=== PATIENT | male | born 1950 | race Caucasian/White ===

== ENCOUNTER 2017-12-20 13:16 | Inpatient (IN) | payer OTHER ==
[2017-12-20] MEDS ORDERED: PROPOFOL/EMULSION 1,000 MG/100 ML BOTTLE IV ONE (13:30)
[2017-12-20] MEDS ORDERED: TDAP ADULT 0.5 ML INJ (BOOSTRIX) IM ONE (13:34)
--- NOTE | 2017-12-20 13:34 | EDPHY ---
H & P Time Seen by Provider: 12/20/17 13:16 HPI/ROS: CHIEF COMPLAINT: Full trauma, head injury HISTORY OF PRESENT ILLNESS: Patient arrives by EMS has full trauma activation. Apparently he was found [place] the [facility] bleeding from the head. Pre-hospital glucose was 29 and he IV glucose prior to arrival. On arrival the patient is nonverbal but is moving around on the gurney and is in a cervical collar. Further history and review of systems is unable as the patient is obtunded on arrival. Past medical history: Left arm fistula and central chest sternotomy is noted. Past medical history reviewed from history and physical dated 08/02/2017 includes dialysis, type 2 diabetes, coronary disease with bypass, prosthetic aortic valve, hepatitis-C. His medications at this time did not include anticoagulants. Social history: Unknown, obtunded on arrival. General Appearance: Patient localizes pain, does not make any verbal sounds or words, does not open eyes spontaneously or to stimuli. Eyes: Manually opening his eyelids, pupils 3 mm bilaterally. ENT, Mouth: Normal mucous membranes. Respiratory: Poor respiratory effort, no crepitus, breath sounds present bilaterally. Cardiovascular: Regular rate and rhythm. Midline sternotomy scar and left arm fistula. Gastrointestinal: Abdomen is soft and non tender. Neurological: Patient localizes pain, nonverbal, does not open eyes spontaneously. Does move all 4 extremities. Skin: 3 cm Laceration to the right parietal scalp. Musculoskeletal: No extremity acute deformity seen, as venous stasis changes in both extremities, has 4 toes on each foot. Psychiatric: Unable, nonverbal Emergency Department course/MDM: Trauma surgeon present on arrival. IV access obtained with i-STAT including potassium 4.3. ED glucose is 140. His pre-hospital glucose was 29 and he was given D50 by the paramedics. Patient was intubated for being obtunded after head trauma on inability to protect airway. Please see separate procedure note for details. CT scan head neck chest abdomen and pelvis ordered. Labs to include troponin and electrolytes. Electrocardiogram. Tetanus updated. ICU admission to Trauma with medicine consult. 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 Chest/abdomen/pelvis mild fluid overload, pleural effusions, no acute traumatic injury seen. 1406: discussed with Dr. Lopes will consult. 1411: Repeat i-STAT shows stable electrolytes with glucose greater than 90. Additional 100 mcg IV fentanyl as well as propofol given for sedation. Scalp laceration cleaned and sutured see Louie ARCE note for details. 1427: ZOHREH hugger applied for hypothermia. (Juju Reyna) Constitutional: Initial Vital Signs Temperature (C) 33.2 C L 12/20/17 13:16 Heart Rate 61 12/20/17 13:16 Respiratory Rate 12 12/20/17 13:16 Blood Pressure 140/80 H 12/20/17 13:16 O2 Sat (%) 100 12/20/17 13:16 O2 Delivery Mode Non-Rebreather Mask O2 (L/minute) 15 Allergies/Adverse Reactions: furosemide Allergy (Verified 12/20/17 14:21) heparin Allergy (Verified 12/20/17 14:21) Sulfa (Sulfonamide Antibiotics) Allergy (Verified 12/20/17 14:21) sulfamethoxazole [From Septra] Allergy (Verified 12/20/17 14:21) torsemide Allergy (Verified 12/20/17 14:21) trimethoprim [From Septra] Allergy (Verified 12/20/17 14:21) Home Medications: Medication Instructions Recorded Unobtainable 12/20/17 Medical Decision Making - Diagnostics Imaging: Discussed imaging studies w/ primary school principal Radiologist - Diagnostics EKG Interpretation: 12-lead EKG interpreted by me; official reading is in trace master. My interpretation is sinus bradycardia with intraventricular conduction delay, rate 49. (Juju Reyna) Imaging Results: Imaging Impressions Lumbar Spine CT 12/20/17 00:00 Impression: 1. Sequela of prior sternotomy, CABG, and aortic valvuloplasty. 2. Cardiomegaly with pulmonary vascular congestion, peribronchial thickening, and intralobular septal thickening with a tiny left pleural effusion and some fluid in the superior portions of each major fissure suggest mild fluid overload. 3. Bibasilar subsegmental atelectasis is infiltrates and/or some alveolar edema. CONTRAST-ENHANCED CT SCAN OF THE ABDOMEN AND PELVIS: Liver: Normal given the arterial and portal venous phases, with imaging acquired before the hepatic veins have yet opacified. Bile Ducts: Normal. Gallbladder: There is gallbladder hydrops. There is no wall thickening or pericholecystic fluid. Pancreas: Normal. Spleen: This is mildly enlarged, measuring 14.2 x 10.8 x 5.7 cm. Adrenal Glands: Normal. Kidneys/Ureters/Urinary Bladder: There is mild bilateral renal cortical atrophy. There is no hydronephrosis or perinephric fluid. The ureters are nondilated. The urinary bladder is moderately distended. GI Tract/Mesentery: The stomach, small bowel, and large bowel are within normal limits. There is no mesenteric edema. Retroperitoneum: There are some borderline enlarged left periaortic retroperitoneal lymph nodes, measuring up to 11 x 15 mm in diameter (series 6, image 41). Follow-up CT reevaluation in 6 months is suggested. There is also a 11 mm right retrocrural lymph node. Peritoneum: There is no ascites, free air, or localized fluid collection.] Vessels: The abdominal aorta is normal in size, and tapers normally. Extensive atherosclerotic calcific plaque is seen in association with the splenic artery, abdominal aorta, and iliac vascular tree. There is no aneurysm. The IVC is normal in caliber. The splenic vein, superior mesenteric vein, and the main portal vein are patent. Reproductive Organs: The prostate gland and seminal vesicles are unremarkable. Abdominal Wall: There is some subcutaneous air likely secondary to injections. A tiny periumbilical hernia is present. Osseous Structures: No acute abnormality. Impression: 1. There is no acute intra-abdominal visceral injury. 2. Mild splenomegaly and mild enlargement of right retrocrural and left periaortic lymph nodes, of uncertain significance. Correlation with a CBC is suggested, and follow-up CT reevaluation in [address] REFORMATTED IMAGES OF THE THORACIC SPINE: The vertebral body heights and posterior alignments are maintained. There is some degenerative change of the midthoracic spine with ventral traction spurs and vacuum disk phenomena. There is no facet malalignment. There is no acute fracture, focal disk herniation, canal stenosis, neural foraminal stenosis, or epidural hematoma identified. Impression: No acute thoracic spine osseous abnormality. CT REFORMATTED IMAGING OF THE LUMBAR SPINE: The vertebral body heights and alignments are preserved. There is severe degenerative disk space narrowing at L5-S1 where there are ventral traction osteophytes present. There is no facet malalignment. The transverse and spinous processes are intact. There is no prevertebral or epidural hematoma identified. There are some mild degenerative changes of the SI joints. Impression: No acute lumbar spine osseous abnormality. Findings were discussed with JUJU REYNA at 14:06, on 12/20/2017. Thoracic Spine CT 12/20/17 00:00 Impression: 1. Sequela of prior sternotomy, CABG, and aortic valvuloplasty. 2. Cardiomegaly with pulmonary vascular congestion, peribronchial thickening, and intralobular septal thickening with a tiny left pleural effusion and some fluid in the superior portions of each major fissure suggest mild fluid overload. 3. Bibasilar subsegmental atelectasis is infiltrates and/or some alveolar edema. CONTRAST-ENHANCED CT SCAN OF THE ABDOMEN AND PELVIS: Liver: Normal given the arterial and portal venous phases, with imaging acquired before the hepatic veins have yet opacified. Bile Ducts: Normal. Gallbladder: There is gallbladder hydrops. There is no wall thickening or pericholecystic fluid. Pancreas: Normal. Spleen: This is mildly enlarged, measuring 14.2 x 10.8 x 5.7 cm. Adrenal Glands: Normal. Kidneys/Ureters/Urinary Bladder: There is mild bilateral renal cortical atrophy. There is no hydronephrosis or perinephric fluid. The ureters are nondilated. The urinary bladder is moderately distended. GI Tract/Mesentery: The stomach, small bowel, and large bowel are within normal limits. There is no mesenteric edema. Retroperitoneum: There are some borderline enlarged left periaortic retroperitoneal lymph nodes, measuring up to 11 x 15 mm in diameter (series 6, image 41). Follow-up CT reevaluation in 6 months is suggested. There is also a 11 mm right retrocrural lymph node. Peritoneum: There is no ascites, free air, or localized fluid collection.] Vessels: The abdominal aorta is normal in size, and tapers normally. Extensive atherosclerotic calcific plaque is seen in association with the splenic artery, abdominal aorta, and iliac vascular tree. There is no aneurysm. The IVC is normal in caliber. The splenic vein, superior mesenteric vein, and the main portal vein are patent. Reproductive Organs: The prostate gland and seminal vesicles are unremarkable. Abdominal Wall: There is some subcutaneous air likely secondary to injections. A tiny periumbilical hernia is present. Osseous Structures: No acute abnormality. Impression: 1. There is no acute intra-abdominal visceral injury. 2. Mild splenomegaly and mild enlargement of right retrocrural and left periaortic lymph nodes, of uncertain significance. Correlation with a CBC is suggested, and follow-up CT reevaluation in [address] REFORMATTED IMAGES OF THE THORACIC SPINE: The vertebral body heights and posterior alignments are maintained. There is some degenerative change of the midthoracic spine with ventral traction spurs and vacuum disk phenomena. There is no facet malalignment. There is no acute fracture, focal disk herniation, canal stenosis, neural foraminal stenosis, or epidural hematoma identified. Impression: No acute thoracic spine osseous abnormality. CT REFORMATTED IMAGING OF THE LUMBAR SPINE: The vertebral body heights and alignments are preserved. There is severe degenerative disk space narrowing at L5-S1 where there are ventral traction osteophytes present. There is no facet malalignment. The transverse and spinous processes are intact. There is no prevertebral or epidural hematoma identified. There are some mild degenerative changes of the SI joints. Impression: No acute lumbar spine osseous abnormality. Findings were discussed with JUJU REYNA at 14:06, on 12/20/2017. Abdomen CT 12/20/17 13:26 Impression: 1. Sequela of prior sternotomy, CABG, and aortic valvuloplasty. 2. Cardiomegaly with pulmonary vascular congestion, peribronchial thickening, and intralobular septal thickening with a tiny left pleural effusion and some fluid in the superior portions of each major fissure suggest mild fluid overload. 3. Bibasilar subsegmental atelectasis is infiltrates and/or some alveolar edema. CONTRAST-ENHANCED CT SCAN OF THE ABDOMEN AND PELVIS: Liver: Normal given the arterial and portal venous phases, with imaging acquired before the hepatic veins have yet opacified. Bile Ducts: Normal. Gallbladder: There is gallbladder hydrops. There is no wall thickening or pericholecystic fluid. Pancreas: Normal. Spleen: This is mildly enlarged, measuring 14.2 x 10.8 x 5.7 cm. Adrenal Glands: Normal. Kidneys/Ureters/Urinary Bladder: There is mild bilateral renal cortical atrophy. There is no hydronephrosis or perinephric fluid. The ureters are nondilated. The urinary bladder is moderately distended. GI Tract/Mesentery: The stomach, small bowel, and large bowel are within normal limits. There is no mesenteric edema. Retroperitoneum: There are some borderline enlarged left periaortic retroperitoneal lymph nodes, measuring up to 11 x 15 mm in diameter (series 6, image 41). Follow-up CT reevaluation in 6 months is suggested. There is also a 11 mm right retrocrural lymph node. Peritoneum: There is no ascites, free air, or localized fluid collection.] Vessels: The abdominal aorta is normal in size, and tapers normally. Extensive atherosclerotic calcific plaque is seen in association with the splenic artery, abdominal aorta, and iliac vascular tree. There is no aneurysm. The IVC is normal in caliber. The splenic vein, superior mesenteric vein, and the main portal vein are patent. Reproductive Organs: The prostate gland and seminal vesicles are unremarkable. Abdominal Wall: There is some subcutaneous air likely secondary to injections. A tiny periumbilical hernia is present. Osseous Structures: No acute abnormality. Impression: 1. There is no acute intra-abdominal visceral injury. 2. Mild splenomegaly and mild enlargement of right retrocrural and left periaortic lymph nodes, of uncertain significance. Correlation with a CBC is suggested, and follow-up CT reevaluation in [address] REFORMATTED IMAGES OF THE THORACIC SPINE: The vertebral body heights and posterior alignments are maintained. There is some degenerative change of the midthoracic spine with ventral traction spurs and vacuum disk phenomena. There is no facet malalignment. There is no acute fracture, focal disk herniation, canal stenosis, neural foraminal stenosis, or epidural hematoma identified. Impression: No acute thoracic spine osseous abnormality. CT REFORMATTED IMAGING OF THE LUMBAR SPINE: The vertebral body heights and alignments are preserved. There is severe degenerative disk space narrowing at L5-S1 where there are ventral traction osteophytes present. There is no facet malalignment. The transverse and spinous processes are intact. There is no prevertebral or epidural hematoma identified. There are some mild degenerative changes of the SI joints. Impression: No acute lumbar spine osseous abnormality. Findings were discussed with JUJU REYNA at 14:06, on 12/20/2017. Cervical Spine CT 12/20/17 13:26 Impression: 1. There is no acute cervical osseous abnormality. 2. Multilevel degenerative changes, most pronounced at the C4-C5 and C5-C6 levels. 3. Tiny central subligamentous disk herniation at C3-C4 resulting in mild central canal stenosis. 4. Minimally displaced left zygomatic arch fracture. If there is further clinical concern regarding the patient's symptoms, correlative MR imaging could be considered, if otherwise not contraindicated. Findings were discussed with JUJU REYNA at 14:06, on 12/20/2017. Head CT 12/20/17 13:26 Impression: 1. There is a superior right frontal scalp hematoma and laceration. 2. There is no acute intracranial abnormality identified on this unenhanced CT evaluation. 3. 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 4. Minimally displaced left zygomatic arch fracture. If there is further clinical concern regarding the patient's symptoms, MR imaging is suggested, if not otherwise contraindicated. Findings were discussed with JUJU REYNA MD at 14:06, on 12/20/2017. Chest CT 12/20/17 13:28 Impression: 1. Sequela of prior sternotomy, CABG, and aortic valvuloplasty. 2. Cardiomegaly with pulmonary vascular congestion, peribronchial thickening, and intralobular septal thickening with a tiny left pleural effusion and some fluid in the superior portions of each major fissure suggest mild fluid overload. 3. Bibasilar subsegmental atelectasis is infiltrates and/or some alveolar edema. CONTRAST-ENHANCED CT SCAN OF THE ABDOMEN AND PELVIS: Liver: Normal given the arterial and portal venous phases, with imaging acquired before the hepatic veins have yet opacified. Bile Ducts: Normal. Gallbladder: There is gallbladder hydrops. There is no wall thickening or pericholecystic fluid. Pancreas: Normal. Spleen: This is mildly enlarged, measuring 14.2 x 10.8 x 5.7 cm. Adrenal Glands: Normal. Kidneys/Ureters/Urinary Bladder: There is mild bilateral renal cortical atrophy. There is no hydronephrosis or perinephric fluid. The ureters are nondilated. The urinary bladder is moderately distended. GI Tract/Mesentery: The stomach, small bowel, and large bowel are within normal limits. There is no mesenteric edema. Retroperitoneum: There are some borderline enlarged left periaortic retroperitoneal lymph nodes, measuring up to 11 x 15 mm in diameter (series 6, image 41). Follow-up CT reevaluation in 6 months is suggested. There is also a 11 mm right retrocrural lymph node. Peritoneum: There is no ascites, free air, or localized fluid collection.] Vessels: The abdominal aorta is normal in size, and tapers normally. Extensive atherosclerotic calcific plaque is seen in association with the splenic artery, abdominal aorta, and iliac vascular tree. There is no aneurysm. The IVC is normal in caliber. The splenic vein, superior mesenteric vein, and the main portal vein are patent. Reproductive Organs: The prostate gland and seminal vesicles are unremarkable. Abdominal Wall: There is some subcutaneous air likely secondary to injections. A tiny periumbilical hernia is present. Osseous Structures: No acute abnormality. Impression: 1. There is no acute intra-abdominal visceral injury. 2. Mild splenomegaly and mild enlargement of right retrocrural and left periaortic lymph nodes, of uncertain significance. Correlation with a CBC is suggested, and follow-up CT reevaluation in [address] REFORMATTED IMAGES OF THE THORACIC SPINE: The vertebral body heights and posterior alignments are maintained. There is some degenerative change of the midthoracic spine with ventral traction spurs and vacuum disk phenomena. There is no facet malalignment. There is no acute fracture, focal disk herniation, canal stenosis, neural foraminal stenosis, or epidural hematoma identified. Impression: No acute thoracic spine osseous abnormality. CT REFORMATTED IMAGING OF THE LUMBAR SPINE: The vertebral body heights and alignments are preserved. There is severe degenerative disk space narrowing at L5-S1 where there are ventral traction osteophytes present. There is no facet malalignment. The transverse and spinous processes are intact. There is no prevertebral or epidural hematoma identified. There are some mild degenerative changes of the SI joints. Impression: No acute lumbar spine osseous abnormality. Findings were discussed with JUJU REYNA at 14:06, on 12/20/2017. Procedures: Procedure: Laceration repair. I was requested by Dr. Reyna to perform wound closure The laceration on the right forehead was anesthetized using 0.5% bupivicaine with epinephrine. The wound was cleaned, prepped, draped in normal sterile fashion and explored to its base. No foreign body seen, no foreign bodies palpated. There were no deep structures involved. The wound was repaired with 7 simple interrupted 6 0 Prolene sutures . The wound repair was complex. The procedure was performed by myself. (Arsenio Manriquez) Indication for the procedure was airway protection. The patient was preoxygenated with 100% oxygen by face mask. The patient was sedated with etomidate and paralyzed with succiylcholine. The patient was orally endotracheally intubated under direct visualization with a 8 0 ETT. In-line stabilization was performed during the procedure. Tracheal intubation was confirmed with misting on the tube; breath sounds were auscultated equally bilaterally; appropriate color change with [place] CO2 detector, capnography waveform is appropriate, oxygen saturation after procedure is 100%. CT of the chest shows ETT in good position. The procedure was performed by myself. (Juju Reyna) Critical Care Time: Critical care time spent by me, Dr. Reyna, exclusively with the care of this patient was 40 minutes, exclusive of PA or INFECTION CONTROL SPECIALIST time and exclusive of separate procedures. The organ system at risk was metabolic for hypoglycemia and environmental for hypothermia and I ordered external warming, IV glucose, serial measurements of electrolytes and glucose, to stabilize the patient and prevent worsening of the patient's condition. (Juju Reyna) - Data Points Laboratory Results: Laboratory Results 12/20/17 13:25 12/20/17 13:25 12/20/17 12/20/17 12/20/17 13:26 13:25 13:25 WBC RBC Hgb POC Hgb 11.2 gm/dL L gm/dL (13.7-17.5) Hct POC Hct 33 % L % (40-51) MCV MCH MCHC RDW Plt Count MPV Neut % (Auto) Lymph % (Auto) [place] % (Auto) Eos % (Auto) Baso % (Auto) Nucleat RBC Rel Count Absolute Neuts (auto) Absolute Lymphs (auto) Absolute Monos (auto) Absolute Eos (auto) Absolute Basos (auto) Absolute Nucleated RBC Immature Gran % Immature Gran # PT 15.2 SEC H SEC (12.0-15.0) INR 1.18 H (0.83-1.16) APTT 33.3 SEC SEC (23.0-38.0) POC Sodium 136 mEq/L mEq/L (135-145) Sodium 138 mEq/L mEq/L (135-145) POC Potassium 4.3 mEq/L mEq/L (3.3-5.0) Potassium 4.5 mEq/L mEq/L (3.5-5.2) POC Chloride 97 mEq/L mEq/L (97-110) Chloride 96 mEq/L L mEq/L (97-110) Carbon Dioxide 24 mEq/l mEq/l (22-31) Anion Gap 18 mEq/L H mEq/L (8-16) POC BUN 66 mg/dL H mg/dL (7-23) BUN 67 mg/dL H mg/dL (7-23) Creatinine 5.7 mg/dL H mg/dL (0.7-1.3) POC Creatinine 5.8 mg/dL H mg/dL (0.7-1.3) Estimated GFR 10 Glucose 133 mg/dL H mg/dL (70-100) POC Glucose 140 mg/dL H mg/dL (70-100) Calcium 8.1 mg/dL L mg/dL (8.5-10.4) Troponin I < 0.012 ng/mL ng/mL (0.000-0.034) Ethyl Alcohol < 10 mg/dL mg/dL (0-10) Patient ABO/Rh Antibody Screen Crossmatch IS Only 12/20/17 12/20/17 13:25 13:04 WBC 6.11 10^3/uL 10^3/uL (3.80-9.50) RBC 3.57 10^6/uL L 10^6/uL (4.40-6.38) Hgb 10.3 g/dL L g/dL (13.7-17.5) POC Hgb Hct 33.2 % L % (40.0-51.0) POC Hct MCV 93.0 fL fL (81.5-99.8) MCH 28.9 pg pg (27.9-34.1) MCHC 31.0 g/dL L g/dL (32.4-36.7) RDW 14.6 % % (11.5-15.2) Plt Count 153 10^3/uL 10^3/uL (150-400) MPV 10.3 fL fL (8.7-11.7) Neut % (Auto) 75.5 % H % (39.3-74.2) Lymph % (Auto) 13.1 % L % (15.0-45.0) [place] % (Auto) 9.7 % % (4.5-13.0) Eos % (Auto) 0.7 % % (0.6-7.6) Baso % (Auto) 0.8 % % (0.3-1.7) Nucleat RBC Rel Count 0.0 % % (0.0-0.2) Absolute Neuts (auto) 4.62 10^3/uL 10^3/uL (1.70-6.50) Absolute Lymphs (auto) 0.80 10^3/uL L 10^3/uL (1.00-3.00) Absolute Monos (auto) 0.59 10^3/uL 10^3/uL (0.30-0.80) Absolute Eos (auto) 0.04 10^3/uL 10^3/uL (0.03-0.40) Absolute Basos (auto) 0.05 10^3/uL 10^3/uL (0.02-0.10) Absolute Nucleated RBC 0.00 10^3/uL 10^3/uL (0-0.01) Immature Gran % 0.2 % % (0.0-1.1) Immature Gran # 0.01 10^3/uL 10^3/uL (0.00-0.10) PT INR APTT POC Sodium Sodium POC Potassium Potassium POC Chloride Chloride Carbon Dioxide Anion Gap POC BUN BUN Creatinine POC Creatinine Estimated GFR Glucose POC Glucose Calcium Troponin I Ethyl Alcohol Patient ABO/Rh A POSITIVE Antibody Screen NEGATIVE Crossmatch IS Only See Detail Medications Given: Discontinued Medications Diphtheria/Tetanus/Acell Pertussis (Boostrix) 0.5 ml IM .ONCE ONE Stop: 12/20/17 13:35 Last Admin: 12/20/17 15:46 Dose: 0.5 ml Fentanyl (Sublimaze) 100 mcg IVP EDNOW ONE Stop: 12/20/17 14:09 Last Admin: 12/20/17 14:15 Dose: 100 mcg Propofol (Diprivan 10 Mg/Ml (Premix)) 50 mls @ 0 mls/hr IV EDNOW ONE; Titrate PRN Reason: Protocol Stop: 12/20/17 14:10 Last Admin: 12/20/17 13:40 Dose: 50 mls Point of Care Test Results: 12/20/17 13:26 POC Sodium 136 POC Potassium 4.3 POC Chloride 97 POC BUN 66 H POC Creatinine 5.8 H POC Glucose 140 H Departure - Departure Disposition: [facility]patient Acute Clinical Impression: Hypoglycemia Head trauma Qualifiers: Encounter type: initial encounter Qualified Code(s): S09.90XA - Unspecified injury of head, initial encounter Scalp laceration Qualifiers: Encounter type: initial encounter Qualified Code(s): S01.01XA - Laceration without foreign body of scalp, initial encounter Hypothermia Qualifiers: Encounter type: initial encounter Qualified Code(s): T68.XXXA - Hypothermia, initial encounter Condition: Critical
[2017-12-20 13:47] LABS: PLATELET COUNT 153 10^3/uL (150-400)
[2017-12-20 13:56] LABS: INR 1.18 (0.83-1.16); PROTIME(PATIENT) 15.2 SEC (12.0-15.0)
[2017-12-20] MEDS ORDERED: fentaNYL 100 MCG/2 ML INJ IVP ONE (14:08)
[2017-12-20] MEDS ORDERED: fentaNYL 100 MCG/2 ML INJ ONE (14:09)
[2017-12-20] MEDS ORDERED: PROPOFOL/EMULSION 50 ML IV ONE (14:09)
[2017-12-20] MEDS ORDERED: D5W NS 1,000 ML IV SCH (14:15)
--- NOTE | 2017-12-20 14:26 | CPEKG ---
Heart Rate: 49 RR Interval: 1224 P-R Interval: 212 QRSD Interval: 138 QT Interval: 576 QTC Interval: 521 P [place]: 36 QRS [place]: -72 T Wave [place]: 218 EKG Severity - ABNORMAL ECG - EKG Impression: SINUS BRADYCARDIA EKG Impression: NONSPECIFIC IVCD WITH LAD EKG Impression: LEFT VENTRICULAR HYPERTROPHY Electronically Signed By: Hero Deras 20-Dec-2017 14:29:07
[2017-12-20] MEDS ORDERED: NALOXONE HCL 0.4 MG/ML INJ IVP PRN (14:27)
[2017-12-20] MEDS ORDERED: ONDANSETRON 4 MG/2 ML VIAL IVP PRN (14:27)
[2017-12-20] MEDS ORDERED: fentaNYL 100 MCG/2 ML INJ IVP PRN (14:30)
--- NOTE | 2017-12-20 14:51 | GHP ---
[f rep st] HISTORY AND PHYSICAL DATE OF ADMISSION: 12/20/2017 CHIEF COMPLAINT: Responded as part of a full trauma activation. HISTORY OF PRESENT ILLNESS: This 67-year-old male was found down in [place] with a trail of blood ext ending 20 or 30 feet. The only obvious injury was a scalp laceration on the right. The patient was moving all 4 extremities and mumbling, but no discernible words. When first seen in the emergency ro om, he had stable vital signs. An I-STAT showed a blood sugar of 29, which was treated with D50 and the emergency room physician elected to intubate the patient to facilitate CT scanning. PAST MEDICAL HISTORY: Was initially unobtainable but eventually chart review shows that the patient has had an aortic valve replacement, has end-stage renal disease with dialysis Thursday, Thursday, Thu. MEDICATIONS: He is on aspirin, insulin 3 times a day. SOCIAL HISTORY: Former smoker. PHYSICAL EXAM: GENERAL: Adult male, bleeding from a right 5 cm scalp laceration. HEENT: Pupils eq ual, round, react to light. Face is otherwise atraumatic. NECK: C-collar is in place. No supracla vicular or axillary crepitance, clavicles intact. EXTREMITIES: Upper extremities appear atraumatic. There is a linear fistula with numerous puncture wounds over it in the left arm over the biceps. L UNGS: Clear. HEART: Normal S1, S2. No murmur. ABDOMEN: Soft, benign. Healed sternotomy scar. Numerous superficial ecchymoses on the abdomen, which I assume are insulin injection sites. PELVIS: Stable to compression. LOWER EXTREMITIES: Show brawny edema and discoloration of the molina, was con sistent with venous stasis disease. He is missing a toe on both feet. Pulses not easy to palpate in the feet due to the liposclerosis. BACK: The patient was eventually turned on his side. No back t rauma or injuries identified. The patient underwent CT scanning for which I accompanied him of his head, neck, chest, abdomen, and pelvis. Other than some brain atrophy, I do not see anything obvious in the skull, neck, chest, or a bdomen. There are small bilateral pleural effusions. Laboratory exams have been repeated and again continue to show renal failure with a creatinine of 5, reasonable potassium, low hematocrit ostensibly because of renal failure. The blood sugar went up ov er 100 with the D50 and I have hung some D5 NS for fluids. ASSESSMENT: The patient brought in as a full trauma activation because of altered mental status and scalp laceration, but it appears to be superficial trauma with no evidence of skull fracture or intra cranial hemorrhage. I expect his fall was likely secondary to hypoglycemia. He will be admitted to the ICU. He is still intubated. After the CT scan, he was moving all 4s and fighting, but would not open his eyes to command or lift a finger to command, so he has again received propofol for sedation . I suspect that as his mental status improves he will be extubated and further management will be d ictated by the medicine service. /[id number]/MODL
[2017-12-20] MEDS ORDERED: IOPAMIDOL (ISOVUE 370) 100 ML BTL IV ONE (15:05)
[2017-12-20] MEDS ORDERED: ETOMIDATE 40 MG/20 ML INJ ONE (15:29)
[2017-12-20] MEDS ORDERED: SUCCINYLCHOLINE CHLORIDE 200 MG/10 ML SYR IVP ONE (15:29)
--- NOTE | 2017-12-20 15:31 | PDMN ---
Medical Necessity Medical necessity: C/M review: Patient meets INPT crtieria under MCG-134 Diabetes, hypoglycemia: Acute altered mental status, obtunded on arrival in ED , 5 cm scalp laceration - wound closure done in ED, hypoglycemia- I-stat glucose in ED 29, Hgb 10.3, 9.2, Hct 33.2, 27, anion gap 18, BUN 67, Cr 5.7, Ca 8.1, INR 1.18, requiring requiring IV D50 and intubation in ED, planned Hospitalist consult, Rehab evaluation consult, ongoing mechanical ventilation, IV Diprivan infusion, IV Pepcid BID, NPO, cardiac monitoring, pulse oximetry, neuro checks Q 1 hr., acute inpt PT/OT/ST in ICU, comorbid patient found down in [place] with a trail of blood extending 20 to 30 ft. with scalp laceration on the right only obvious injury - fall likely secondary to hypoglycemia, history of AVR, ESRD on dialysis Mon-Wed. Fri., patient is on insulin. MD anticipates > 2 MN LOS for ongoing med nec for eval and TX of above. Patient is Medicare Advantage which follows guidelines CMS puts forth.
--- NOTE | 2017-12-20 15:35 | ASMTCMCOM ---
CM Note CM Note Notes: Pt admitted as a full trauma after being found down, unconscious at the [facility] in [facility]. Pt's name and date of obtained from EMS. Per past medical records, pt lives alone in an apartment here in [place]. The pt has an extensive past medical history including end stage renal disease with dialysis, CAD w/ CABG, diabetes, osteomyelitis, Hep C and med noncompliance. Pt was most recently seen at [facility] on 12/12/17. Spoke with NADIRA Shaw, regarding notification of family. Per RICCARDO Shaw to alert emergency contact. Call placed to Hillary Smith in [place], the pt's mother; LVM. Received call back from Hillary. Information verified prior to releasing updates. Per Hillary, the pt lives alone and is not . She "has not seen her son in a very long time, but they talk at least once a week." She reports speaking to the pt yesterday 12/19/17, at which time "everything seemed ok." Hillary is unaware of any medical conditions or chronic illnesses. Support provided. Hillary given the hospital name, main number and a brief update - pt to transfer to ICU. Spoke w/ [facility] Hillary Galvan. Terra Cotta Mason to contact pt's mother for additional support and follow up. Terra Cotta Mason provided with emergency contact information. Terra Cotta Mason to also follow pt during hospitalization for any needs and additional support. Updates provided to NADIRA Shaw, Janie [employer] AGENCY REFERRAL CLERK and Grazyna DBAS. CM will continue to follow. Date Signed: 12/20/2017 03:29 PM Electronically Signed By:Matilde Goodwin RN
[2017-12-20] MEDS: PROPOFOL/EMULSION 100 ML IV SCH ×3 (18:23→22:45)
[2017-12-20] MEDS ORDERED: fentaNYL/NACL 100 ML IV SCH ×2 (19:20→19:25)
[2017-12-20] MEDS ORDERED: PROPOFOL/EMULSION 100 ML IV SCH (19:25)
[2017-12-20] MEDS: CHLORHEXIDINE GLUCONATE 15 ML UDL PO SCH (20:00)
[2017-12-20] MEDS ORDERED: FAMOTIDINE 20 MG/NACL 50 ML IV SCH ×2 (21:00)
[2017-12-20] MEDS ORDERED: HEPARIN 5,000 UNIT/0.5 ML SYR SC SCH (22:00)
--- NOTE | 2017-12-21 01:38 | GCON ---
[f rep st] CONSULTATION INTERNAL MEDICINE CONSULTATION DATE OF CONSULTATION: 12/20/2017 REASON FOR CONSULTATION: Medical management. HISTORY OF PRESENT ILLNESS: This is a 67-year-old male, who is well known to our service. He has a history of type 2 diabetes, end-stage renal disease, bioprosthetic aortic valve replacement, coronary artery disease, amongst some other chronic medical issues. He has also had multiple ER visits for h ypoglycemia. Apparently, he was found today in [place] with a trail of blood extending 20-30 feet. T he only obvious injury that was found was a scalp laceration on the right. When the paramedics were called, he had a blood sugar of 29. He was given D50 and he was actually fairly agitated and thus, w as intubated in order to get the CAT scanning. No other history is obtained at this time. PAST MEDICAL HISTORY: 1. End-stage renal disease, and he gets dialysis at [facility] under Dr. Barry on Thursday, Thursday, Fr butts. 2. CHF. 3. Type 2 diabetes. 4. Coronary artery disease, status post CABG. 5. Anxiety. 6. History of bioprosthetic aortic valve. 7. Hepatitis C. 8. Recent 1st toe resection in April last year. SOCIAL HISTORY: No smoking or alcohol. He was previously homeless, but now lives in an apartment. FAMILY HISTORY: Not contributory. REVIEW OF SYSTEMS: Unable to be obtained. PHYSICAL EXAM: Afebrile, heart rate is in the 50s, blood pressure 123/90, oxygenation 100%. In gene ral, patient is intubated, in no apparent distress. HEENT: Pupils are 2 mm and reactive and equal. Neck is supple. No thyromegaly. LUNGS: Good effort. Clear to auscultation bilaterally. CARDIOVA SCULAR: Regular rate and rhythm. No murmurs or gallops. ABDOMEN: Positive bowel sounds. Soft, no ntender, nondistended. No hepatosplenomegaly. EXTREMITIES: Left upper arm fistula. Lower extremit ies show chronic venous stasis changes with 1+ edema, and toe amputations on both sides. NEURO: Sed ated. LABS: White count 6, hemoglobin 10, platelets 153. Chemistry: Sodium 138, potassium 4.5, BUN is 67 , creatinine 5.7. Alcohol is negative. CT scan of the chest: Cardiomegaly with pulmonary vascular congestion. Head CT: Right frontal scalp hematoma and laceration. Otherwise, negative, along with a minimally d isplaced left zygomatic arch fracture. Abdomen CT: Negative. EKG, personally reviewed and interpreted, reveals sinus bradycardia. ASSESSMENT: A 67-year-old male, who was found down, most likely due to hypoglycemia. PLAN: 1. Found down. Most likely cause is hypoglycemia. He does have some sinus bradycardia, which we ca n monitor on telemetry. We will cycle troponins as well, as he does have a history of coronary arter y disease. 2. Hypoglycemia. He has already received an amp of D50 and some D5. He looks like he has only been on lispro from the last admission and thus, would not expect insulin to be around that long. We claudine l watch his blood sugars overnight and stop the D5 if they do get too high. 3. Mild pulmonary venous congestion. We will defer to Nephrology if they want to take more fluid of f. His last echocardiogram was in April of last year, which showed a normal EF and diastolic dysfunct ion. 4. End-stage renal disease. I have discussed the case with Nephrology and they will see the patient and probably dialyze him tomorrow. 5. Acute respiratory failure. Per Pulmonology, probably will be extubated tomorrow. 6. History of hepatitis C. 7. GI and DVT prophylaxis. Thank you for this consultation. We will follow along with you. /[id number]/MODL
--- NOTE | 2017-12-21 03:38 | GCON ---
[f rep st] CONSULTATION NEPHROLOGY CONSULTATION DATE OF CONSULTATION: 12/20/2017 REASON FOR CONSULTATION: End-stage renal disease. HISTORY OF PRESENT ILLNESS: I have been asked to evaluate the patient regarding his end-stage renal disease. He is a 67-year-old gentleman with a history of end-stage renal disease secondary to biopsy-proven diabetic nephropathy. He was followed as an outpatient by my partner, Dr. Avila up until 2010. At that time, his creatinine was 1.5. He was lost to follow up after his July 2011 visit for unclear reasons. His note from that time does comment on homelessness, therefore, I suspect there was an element of social instability and/or lack of insurance. He was next seen by our practice in 2013 during a hospitalization at this institution. At that time, his creatinine had increased to 2.7 in the context of a foot infection. At some point after that date, he progressed to end-stage renal disease and apparently has been dialyzed on a Thursday, Thursday, Thursday schedule at the [facility] [place] under the care of [facility]. He was found down today at a [place]ah[place] and was hypoglycemic. He was brought to the emergency room and given dextrose. I believe he did receive saline in the emergency room and has basically been unresponsive. He is intubated, but oxygenating well on 40% FiO2. He has been hemodynamically stable aside from some bradycardia initially that has been slowly improving. His potassium is 3.9 and serum bicarbonate was 24. I have been asked to evaluate him for likely dialysis tomorrow. PAST MEDICAL HISTORY: 1. End-stage renal disease due to biopsy-proven diabetic nephropathy. 2. Coronary artery disease status post coronary artery bypass grafting. 3. Aortic valve stenosis status post aortic valve replacement. 4. Longstanding diabetes. 5. Hypertension. 6. Hepatitis C. 7. History of stroke. PAST SURGICAL HISTORY: 1. Coronary artery bypass graft. 2. Aortic valve replacement. 3. AV fistula placement. ALLERGIES: Sulfa and Lasix. MEDICATIONS: Currently, he is receiving normal saline at 100 mL/hour. Other medications include Pepcid 20 mg IV q.12 hours, fentanyl as needed for sedation , heparin 5000 units subcutaneously q.8 hours, propofol. 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 He has been homeless in the past as outlined above. FAMILY HISTORY: Positive for diabetes, but negative for renal failure. REVIEW OF SYSTEMS: Unobtainable due to the patient's unconscious status. PHYSICAL EXAMINATION: GENERAL: He is intubated and sedated. VITAL SIGNS: Blood pressure 121/57, heart rate is 54. He is hypothermic with a temperature of 35.6. This is improved from 33.9 earlier. HEENT: Oropharynx is obscured by an endotracheal tube. NECK: Supple without JVD or lymphadenopathy. LUNGS: Clear to auscultation anteriorly. HEART: Regular rate and rhythm, 2/6 systolic murmur, frequent ectopy. ABDOMEN: Soft, nontender. Bowel sounds are normoactive. I do not appreciate hepatosplenomegaly, masses, or bruits. EXTREMITIES: He has 2+ edema in his lower extremities bilaterally. A left upper extremity AV fistula is patent with an excellent bruit and thrill. SKIN: He has some chronic venous stasis changes in his ankles bilaterally. NEURO: He is sedated. : Graham catheter is in place draining dark yellow urine. LABORATORY DATA: His initial sodium was 138, potassium 4.5, chloride 96, CO2 24 , BUN 67, creatinine 5.7, glucose 133, calcium 8.1. His most recent glucose is 92, most recent potassium is 3.9, white blood cell count 6.1, hemoglobin 10.3, platelets 153. INR was 1.2. Arterial blood gas demonstrated an arterial pH 7.29, pO2 308, pCO2 48, with a total CO2 of 24. IMPRESSION AND PLAN: 1. End-stage renal disease: Will tentatively plan to dialyze the patient tomorrow on his typical Thursday, Thursday, Thursday schedule. He does not appear hypovolemic, and I would decrease his intravenous fluids if at all possible. If dextrose is needed to maintain normal glycemia, I would suggest changing him to D10, which could then be infused at a lower rate. His electrolytes are stable, and I do not see any indication for urgent dialysis this evening. His arteriovenous fistula is patent fortunately. 2. Hypoglycemia: This appears to have resolved. I would consider changing his intravenous fluids to D10 at a lower rate if this is needed. From an end- stage renal disease standpoint, it would be preferable to simply discontinue his intravenous fluids if that can safely be done. 3. Anemia: His hemoglobin is at goal, we will follow this. Thank you for the consultation. We will follow with you. /[id number]/MODL MTDD
[2017-12-21] MEDS: PROPOFOL/EMULSION 100 ML IV SCH ×3 (03:39→09:30)
[2017-12-21 05:21] LABS: PLATELET COUNT 139 10^3/uL (150-400)
[2017-12-21] MEDS: CHLORHEXIDINE GLUCONATE 15 ML UDL PO SCH (08:35)
--- NOTE | 2017-12-21 09:22 | SOAPPROG ---
SOAP Progress Note Assessment/Plan: Assessment:The patient is a 67 y/o M with PMH ESRD found down 2/2 to hypoglycemia. ESRD on HD -plan for HD today, plan for MWF schedule -access LAVF intact -consider d/c serrano if risk of infection HTN/vol: -no edema, BP's soft on sedation -will UF 1L if possible -hold home antihypertensives for now (awaiting med rec) Anemia -Hb drop to <9 -send iron studies, will consider EPO next treatment Hypoglycemia with DM -off d10 and BS's stable -still intubated with good ABG, most likely weaning today BMD: -replete calcium -2.5mEq bath -monitor daily phos 12/21/17 10:10 Subjective: Patient is sedated. Opens eyes to voice. Agitated overnight per nursing. Objective: Vital Signs Temp Pulse Resp BP Pulse Ox 36.5 C 63 14 116/54 L 100 12/21/17 09:00 12/21/17 09:00 12/21/17 09:00 12/21/17 09:00 12/21/17 09:00 Laboratory Results 12/21/17 05:05 12/21/17 05:05 12/20/17 12/21/17 12/22/17 05:59 05:59 05:59 Intake Total 662.4 Output Total 840 Balance -177.6 PT 15.2 SEC (12.0-15.0) H 12/20/17 13:25 INR 1.18 (0.83-1.16) H 12/20/17 13:25 Physical Exam - Physical Exam General Appearance: thin, other (sedated, intubated) EENT: PERRL/EOMI, normal ENT inspection, other (some dried blood R orthodox) Neck: non-tender, full range of motion, supple Respiratory: chest non-tender, decreased breath sounds, crackles Cardiac/Chest: normal peripheral pulses, regular rate, rhythm Abdomen: normal bowel sounds, non-tender, soft Back: Normal inspection Skin: normal color, warm/dry Extremities: non-tender, other (L AVF good thrill and pulse) Neuro/Psych: disoriented to person, disoriented to place, disoriented to time ICD10 Worksheet Patient Problems: Problems Problem Status Onset Head trauma Acute Hypoglycemia Acute Hypothermia Acute Scalp laceration Acute
--- NOTE | 2017-12-21 11:41 | HOSPPROG ---
Hospitalist Progress Note Assessment/Plan: Hypoglycemia - resolved, likely 2/2 insulin lispro. BG's now normalized, off D5. ESRD - 2/2 diabetic nephropathy -HD today per renal Volume overload - CXR suggests pulmonary edema and clinically appears volume up -HD to remove 3L if able AHRF - currently intubated, on CPAP trial -likely extubate today Anemia - 2/2 CKD, stable CAD s/p CABG - Nl EF on 04/2017 echo. Stable. -cont outpt meds Scalp hematoma / laceration - s/p sutures in ED. No e/o ICH on head CT -rpt head CT if any neurologic changes Full code Dispo - cont inpt, discussed with pulm, care team Subjective: Pt intubated, sedated. Opens eyes to verbal stimulus. No fevers. Objective: Vital Signs Temp Pulse Resp BP Pulse Ox 36.8 C 61 16 128/55 H 100 12/21/17 10:00 12/21/17 10:00 12/21/17 10:00 12/21/17 10:00 12/21/17 10:00 Laboratory Results 12/21/17 05:05 12/21/17 05:05 12/20/17 12/21/17 12/22/17 05:59 05:59 05:59 Intake Total 662.4 Output Total 840 Balance -177.6 PT 15.2 SEC (12.0-15.0) H 12/20/17 13:25 INR 1.18 (0.83-1.16) H 12/20/17 13:25 - Physical Exam Constitutional: no apparent distress Eyes: PERRL Ears, Nose, Mouth, Throat: moist mucous membranes Cardiovascular: regular rate and rhythym Respiratory: no respiratory distress, inspiratory crackles Gastrointestinal: normoactive bowel sounds, soft, non-tender abdomen Skin: warm Musculoskeletal: full muscle strength, other (2+ b/l LE edema) Neurologic: AAOx3 Psychiatric: interacting appropriately ICD10 Worksheet Patient Problems: Problems Problem Status Onset Head trauma Acute Hypoglycemia Acute Hypothermia Acute Scalp laceration Acute
--- NOTE | 2017-12-21 12:48 | TRAUMAPN ---
Assessment/Plan: Tertiary Survey/Daily Visit - No overnight issues. Remains intubated, sedated. Able to follow commands. Afebrile. HEENT - clean right temporal laceration. PERRLA/EOMI. Neck - c- collar in place. Heart reg with 3/6 systolic murmur. Lungs clear at present. Abd soft, nondistended. Ext - patent AVF. s/p fall likely secondary to hypoglycemia. superficial facial laceration. zygomatic arch fx - no further treatment or follow up needed here. Once extubated, can clear ccollar - anticipated for later today. No further trauma issues noted. Objective: Vital Signs Temp Pulse Resp BP Pulse Ox 36.8 C 63 31 H 137/62 H 99 12/21/17 10:00 12/21/17 11:00 12/21/17 11:00 12/21/17 11:00 12/21/17 11:00 Laboratory Results 12/21/17 05:05 12/21/17 05:05 12/20/17 12/21/17 12/22/17 05:59 05:59 05:59 Intake Total 662.4 Output Total 840 Balance -177.6 PT 15.2 SEC (12.0-15.0) H 12/20/17 13:25 INR 1.18 (0.83-1.16) H 12/20/17 13:25
[2017-12-21] MEDS ORDERED: BACITRACIN OINTMENT 1 PACKET TP SCH (14:00)
--- NOTE | 2017-12-21 16:06 | WOCRNPDOC ---
WOCRN Advanced Assessment Note - Skin Integrity Problem, Advanced Assess Left Pedal Foot Diabetic Ulcer Dressing Type: Open to Air Exudate Amount: None Linn Wound Tissue: Calloused Wound Bed Constitution: Red/Gassaway - Non Granular Tissue Site Measurement - Head-to-Toe Length X Width X Depth (cm): 0.8x0.6x0.2 Skin Integrity Problem Comment: DFU over 3rd metatarsal head with surrounding callous on a foot with neuropathic changes including charcot foot. Callous appears maintained and to have been shaved back within last 2-3 months. No linn wound erythema. Patient missing 2nd toe. Wound care will check in next week. Apply silvasorb and alleyvn life. Discussed with Carmen EVANS.
--- NOTE | 2017-12-21 18:36 | GCON ---
[f rep st] CONSULTATION PULMONARY CRITICAL CARE CONSULTATION DATE OF CONSULTATION: 12/21/2017 REASON FOR CONSULTATION: Acute respiratory failure, closed head injury. HISTORY: The patient is a 67-year-old gentleman who was admitted yesterday. He apparently fell and hit his head. He was apparently unresponsive. He was found to be significantly hypoglycemic. He wa s given dextrose and fluids. He was intubated for airway protection and has been on 40% FiO2. There is no evidence of pneumonia or aspiration. He does have a history of chronic renal failure secondar y to diabetes, coronary artery disease, and coronary artery bypass grafting as well as an aortic valv e replacement. Following admission, he has been kept on the ventilator. He is sedated with propofol and fentanyl. He is to have hemodialysis today. PAST MEDICAL HISTORY: Please see the comments above. He has chronic renal failure, diabetes, reno ry artery disease and coronary artery bypass grafting, aortic valve replacement, history of hepatitis C, and congestive heart failure. There is also a history of medical noncompliance and falling. He is not felt to be a good candidate for anticoagulation. HOME MEDICATIONS: If he was taking any, are not listed. SOCIAL HISTORY: Unobtainable from the patient. Apparently, he has been homeless in the past but rec ently has been living in an apartment. Alcohol and tobacco reportedly were negative per the chart. FAMILY HISTORY: Unobtainable. REVIEW OF SYSTEMS: Unobtainable. PHYSICAL EXAMINATION: GENERAL: Reveals a gentleman who is sedated, on the ventilator. He is not cu rrently responsive secondary to sedation but earlier, reportedly did respond to simple questions and commands. VITAL SIGNS: He is on 40% FiO2 with saturations of 99%. Blood pressure is 117/59, heart rate 66 with sinus rhythm on the monitor. He is afebrile. Respiratory rate is set on the ventilator at 14. He will over breathe at times. HEENT: Remarkable for an oral endotracheal tube, and an noé gastric tube to suction. Pupils appear equal. Mucous membranes are somewhat dry. Jugular venous di stention appears to be present at approximately 12 cm water pressure. CHEST: Clear anteriorly. Priscilla ath sounds are diminished at the bases. There are no significant rales. There are no rhonchi. Secr etions are minimal. HEART: Regular in rate and rhythm. A systolic murmur is present. His aortic v alve sounds are crisp. There is no gallop. P2 is possibly increased. ABDOMEN: Soft. Bowel sounds are present but diminished. There is no obvious organomegaly. EXTREMITIES: Remarkable for trace e adán. NEUROLOGIC: Examination is grossly intact as he will move extremities. Cognition and mental status cannot be assessed at this time. DATABASE: White blood cell count is 5000, hematocrit 25.2, platelets are 139,000. PT and PTT were w ithin normal limits on admission. Arterial blood gas on the ventilator shows a pH of 7.38, pCO2 of 3 7 and a pO2 of 147. This is on a rate of 14, 500, 5 of PEEP and 7 of pressure support. Sodium is 13 8, potassium 4.1, BUN 69 with a creatinine of 5.9 prior to dialysis. Glucose is 100-127 today. Trop onins have been negative. Calcium is 7.6. Blood alcohol on admission was negative. Chest x-ray shows lines and tubes to be in good position. There are some increased markings bilatera lly, possibly secondary to a component of congestive heart failure. Heart is relatively large. Ther e is a small left effusion. CT scan of the chest on admission showed no evidence of pulmonary embolic disease. There appears to be some vascular congestion consistent with congestive heart failure as noted above. A small left ef fusion is seen. Some bibasilar focal atelectasis or infiltrates are noted. Into the abdomen, there is mild splenomegaly and some nonspecific lymphadenopathy. Some degenerative changes are noted in th e spine. CT scan of the head showed no acute evidence of intraparenchymal trauma, no subdural or subarachnoid hemorrhage. Cerebral atrophy was noted. There was a zygomatic arch fracture, and a right frontal ar ea of scalp injury. ASSESSMENT: 1. Status post fall with a scalp injury and possibly zygomatic fracture. There is no evidence of in traparenchymal injury or significant intracerebral trauma. He may have fallen secondary to hypoglyce tara? 2. Acute respiratory failure. He was intubated for airway protection. Appears to be doing well on the ventilator. After dialysis today, a CPAP trial will be performed. If he does well, sedation can be decreased and perhaps he can be weaned from the ventilator? There is no evidence of pneumonia or aspiration. A surveillance sputum culture will be obtained. 3. Chronic renal failure. He is on dialysis 3 times a week. Dialysis will be done today. 4. History of coronary artery disease, coronary artery bypass graft and aortic valve replacement. H emodynamics are stable. 5. Anemia. This appears to be chronic, secondary to his renal failure. 6. Hypoglycemia. He does have a history of type 2 diabetes. Therapies for this are unknown to me a t this time. 7. History of hepatitis C. 8. Gastrointestinal prophylaxis: On famotidine. 9. Deep venous thrombosis prophylaxis: On sequential compression devices. There is no apparent con traindication to subcutaneous heparin. I will discuss this with Renal. He is not felt to be a good candidate for jail oral anticoagulation. PLAN/RECOMMENDATIONS: The patient will be kept in the intensive care unit. Following hemodialysis t zonia, if he is doing well, he will be placed on a CPAP wean. If he does well with this, extubation c an be considered, or it may be reasonable to keep him on the ventilator overnight. Laboratory will b e followed. It may be reasonable if he is agitated with decreasing his propofol and fentanyl, to bertha ce him on Precedex. Chest x-ray and blood gas will be followed. Glucoses will be checked frequently . Further plans and recommendations will be made based on his progress over the next 12-24 hours. /[id number]/MODL
[2017-12-21 18:39] VITALS: TEMP 99.5
[2017-12-21] MEDS ORDERED: CYCLOBENZAPRINE 10 MG TAB PO PRN (19:07)
[2017-12-21] MEDS ORDERED: oxyCODONE IR 5 MG TAB PO PRN (19:08)
[2017-12-21 19:53] VITALS: BP 132/64; PULSE 76; RESP 15; O2SAT 100
[2017-12-21] MEDS ORDERED: FAMOTIDINE 20 MG/NACL 50 ML IV SCH (21:00)
[2017-12-21] MEDS ORDERED: FAMOTIDINE 20 MG TAB PO SCH (21:00)
== END 2017-12-21 21:45 | disposition left against medical advice (07) | DRG 604 ==
LOC: EDBD 13:16 → F2N 14:49
PROVIDERS: ADMIT Surgery; ATTEND Surgery
PROC: 0HQ1XZZ Repair Face Skin, External Approach (ICD-10-PCS; principal; 2017-12-20)
PROC: 5A1945Z Respiratory Ventilation, 24-96 Consecutive Hours (ICD-10-PCS; 2017-12-20)
PROC: 0BH17EZ Insertion of Endotracheal Airway into Trachea, Via Natural or Artificial Opening (ICD-10-PCS; 2017-12-20)
PROC: 5A1D70Z Performance of Urinary Filtration, Intermittent, Less than 6 Hours Per Day (ICD-10-PCS; 2017-12-21)
DX: S01.81XA Laceration without foreign body of other part of head, initial encounter (principal); I12.0 Hypertensive chronic kidney disease with stage 5 chronic kidney disease or end stage renal disease; N18.6 End stage renal disease; J90 Pleural effusion, not elsewhere classified; L97.528 Non-pressure chronic ulcer of other part of left foot with other specified severity; Z53.21 Procedure and treatment not carried out due to patient leaving prior to being seen by health care provider; E11.22 Type 2 diabetes mellitus with diabetic chronic kidney disease; T68.XXXA Hypothermia, initial encounter; R40.2431 Glasgow coma scale score 3-8, in the field [EMT or ambulance]; E11.65 Type 2 diabetes mellitus with hyperglycemia; E11.621 Type 2 diabetes mellitus with foot ulcer; B19.20 Unspecified viral hepatitis C without hepatic coma; W19.XXXA Unspecified fall, initial encounter; Y92.22 Religious institution as the place of occurrence of the external cause; D63.1 Anemia in chronic kidney disease; Z95.1 Presence of aortocoronary bypass graft; Z99.2 Dependence on renal dialysis; Z95.4 Presence of other heart-valve replacement
CPT/HCPCS: 82947-QW; 96374; G0480; J0330; J2704; J3010; Q9967